=== PATIENT | male | born 1960 | race Caucasian/White ===

== ENCOUNTER 2017-11-10 16:02 | Inpatient (IN) | payer BC, OTHER ==
[2017-11-10] MEDS ORDERED: DILTIAZEM-D5W 125MG/125ML DRIP 125 ML IV (16:31)
[2017-11-10] MEDS: ASPIRIN 325 MG TAB PO (16:53)
[2017-11-10 16:54] LABS: ADD MAN DIFF? NO
[2017-11-10] MEDS: DILTIAZEM 25 MG INJ IV (16:54)
[2017-11-10 16:55] LABS: WHITE BLOOD COUNT 5.8 10^3/ul (4.8-10.8)
[2017-11-10 16:55] LABS: ABNORMAL IP MESSAGE 1; BASOPHILS % 0.5 % (0.0-2.0); EOSINOPHILS # 0.2 10^3/ul (0.0-0.5); EOSINOPHILS % 3.1 % (0.0-7.0); HEMATOCRIT 43.1 % (42.0-52.0); HEMOGLOBIN 14.9 g/dl (14.0-18.0); LYMPHOCYTES # 0.5 10^3/ul (0.8-2.9); LYMPHOCYTES % 8.6 % (15.0-51.0); MEAN CORPUSCULAR HEMOGLOBIN 29.3 pg (29.0-33.0); MEAN CORPUSCULAR HGB CONC 34.6 g/dl (32.0-37.0); MEAN CORPUSCULAR VOLUME 84.7 fl (82.0-101.0); MONOCYTE # 0.6 10^3/ul (0.3-0.9); MONOCYTES % 10.7 % (0.0-11.0); NEUTROPHIL # 4.4 10^3/ul (1.6-7.5); NEUTROPHILS % 76.4 % (39.0-77.0); PLATELET COUNT 198 10^3/UL (140-415); POSITIVE DIFF @See below; RED BLOOD COUNT 5.09 10^6/ul (4.70-6.10); RED CELL DISTRIBUTION WIDTH 13.9 % (11.5-14.5)
[2017-11-10] MEDS ORDERED: ACETAMINOPHEN 325 MG TAB PO (17:00)
[2017-11-10] MEDS ORDERED: ONDANSETRON 4 MG INJ IV (17:00)
[2017-11-10 17:02] LABS: ADD UMIC NO; UR ASCORBIC ACID NEGATIVE (NEGATIVE); UR BILIRUBIN (Dip) NEGATIVE (NEGATIVE); UR BLOOD (Dip) NEGATIVE (NEGATIVE); UR CLARITY CLEAR (CLEAR); UR COLOR YELLOW (YELLOW); UR GLUCOSE (Dip) NEGATIVE (NEGATIVE); UR KETONES (Dip) NEGATIVE (NEGATIVE); UR LEUKOCYTE ESTERASE (Dip) NEGATIVE Leu/ul (NEGATIVE); UR NITRITE (Dip) NEGATIVE (NEGATIVE); UR SPECIFIC GRAVITY (Dip) 1.012 (1.003-1.030); UR TOTAL PROTEIN (Dip) NEGATIVE (NEGATIVE); UR UROBILINOGEN (Dip) NEGATIVE (NEGATIVE)
[2017-11-10 17:12] LABS: INR 0.93; PROTIME 12.6 Sec (11.9-14.9)
[2017-11-10 17:13] LABS: PARTIAL THROMBOPLASTIN TIME 31.9 Sec (25.0-35.0)
[2017-11-10 17:24] LABS: ALANINE AMINOTRANSFERASE 38 IU/L (13-69); ALBUMIN 4.6 g/dl (3.3-4.9); ALBUMIN/GLOBULIN RATIO 1.84; ALKALINE PHOSPHATASE 56 IU/L (42-121); ANION GAP 18 (8-16); ASPARTATE AMINO TRANSFERASE 25 IU/L (15-46); BILIRUBIN,INDIRECT 0.2 mg/dl (0-1.1); BILIRUBIN,TOTAL 0.2 mg/dl (0.2-1.3); BLOOD UREA NITROGEN 20 mg/dl (7-20); CALCIUM 9.7 mg/dl (8.4-10.2); CARBON DIOXIDE 27 mmol/L (21-31); CHLORIDE 106 mmol/L (97-110); CREATINE KINASE 179 IU/L (23-200); CREATININE 1.17 mg/dl (0.61-1.24); GLUCOSE 100 mg/dl (70-220); POTASSIUM 5.1 mmol/L (3.5-5.1); SODIUM 146 mmol/L (135-144); TOTAL PROTEIN 7.1 g/dl (6.1-8.1)
[2017-11-10 17:36] LABS: B-TYPE NATRIURETIC PEPTIDE 415 PG/ML (0-125); CK INDEX 1.6; TROPONIN-I 0.014 ng/ml (0.00-0.12)
[2017-11-10 17:51] LABS: CK-MB 2.93 ng/ml (0.0-2.4)
[2017-11-10] MEDS: DILTIAZEM-D5W 125MG/125ML DRIP 125 ML IV (18:28)
[2017-11-10] MEDS: AMITRIPTYLINE 50 MG TAB PO (19:30)
[2017-11-10] MEDS ORDERED: ALPRAZOLAM 0.25 MG TAB PO (23:30)
[2017-11-10] MEDS ORDERED: HYDROCODONE/APAP (10/325) TAB PO (23:30)
[2017-11-10] MEDS ORDERED: MAGNESIUM HYDROXIDE 30ML CUP PO (23:30)
[2017-11-11] MEDS: AMITRIPTYLINE 25 MG TAB PO ×4 (00:14→16:45)
[2017-11-11] MEDS: TAMSULOSIN (SR) 0.4 MG CAP PO (00:14)
[2017-11-11 00:49] LABS: CREATINE KINASE 116 IU/L (23-200)
[2017-11-11 01:00] LABS: CK INDEX 1.6; TROPONIN-I 0.036 ng/ml (0.00-0.12)
[2017-11-11 01:09] LABS: CK-MB 1.91 ng/ml (0.0-2.4)
[2017-11-11] MEDS: ZOLPIDEM 5 MG TAB PO (02:30)
[2017-11-11] MEDS ORDERED: NITROGLYCERIN (SL) 0.4 MG TAB SL (04:00)
[2017-11-11] MEDS: LEVOTHYROXINE 100 MCG TAB PO (06:08)
[2017-11-11 08:30] LABS: ALANINE AMINOTRANSFERASE 36 IU/L (13-69); ALKALINE PHOSPHATASE 47 IU/L (42-121); ANION GAP 13 (8-16); ASPARTATE AMINO TRANSFERASE 18 IU/L (15-46); BILIRUBIN,INDIRECT 0.4 mg/dl (0-1.1); BILIRUBIN,TOTAL 0.4 mg/dl (0.2-1.3); BLOOD UREA NITROGEN 20 mg/dl (7-20); CALCIUM 9.3 mg/dl (8.4-10.2); CARBON DIOXIDE 27 mmol/L (21-31); CHLORIDE 104 mmol/L (97-110); CHOL/HDL RATIO 4.6 RATIO; CHOLESTEROL 143 mg/dl (100-200); CREATININE 1.16 mg/dl (0.61-1.24); GLUCOSE 105 mg/dl (70-220); HDL CHOLESTEROL 31 mg/dl (28-71); LDL CHOLESTEROL,CALCULATED 81 mg/dl; POTASSIUM 4.3 mmol/L (3.5-5.1); SODIUM 140 mmol/L (135-144); TOTAL PROTEIN 6.1 g/dl (6.1-8.1); TRIGLYCERIDES 156 mg/dl (0-149)
[2017-11-11 08:31] LABS: CREATINE KINASE 97 IU/L (23-200)
[2017-11-11 08:42] LABS: CK INDEX 1.5; TROPONIN-I 0.021 ng/ml (0.00-0.12)
[2017-11-11 08:44] LABS: T3 UPTAKE 34.8 % (23.5-40.5)
[2017-11-11 08:46] LABS: CK-MB 1.47 ng/ml (0.0-2.4)
[2017-11-11 08:59] LABS: THYROID STIMULATING HORMONE 0.956 MIU/L (0.465-4.680); TRIIODOTHYRONINE 1.08 ng/ml (0.97-1.69)
[2017-11-11] MEDS: PAROXETINE 20 MG TAB PO (09:34)
[2017-11-11] MEDS: ASPIRIN (EC) 81 MG TAB PO (09:34)
[2017-11-11] MEDS: MAGNESIUM SULFATE 2 GM/50 ML 50 ML IVPB (09:35)
[2017-11-11] MEDS: DILTIAZEM (CD) 240 MG CAP PO (11:19)
[2017-11-11 12:39] LABS: CK INDEX 1.3; CREATINE KINASE 87 IU/L (23-200)
[2017-11-11 12:41] LABS: CK-MB 1.17 ng/ml (0.0-2.4); TROPONIN-I < 0.012 ng/ml (0.00-0.12)
[2017-11-12] MEDS: TAMSULOSIN (SR) 0.4 MG CAP PO (00:41)
[2017-11-12] MEDS: AMITRIPTYLINE 25 MG TAB PO ×3 (00:41→12:13)
[2017-11-12] MEDS: ACETAMINOPHEN 325 MG TAB PO (03:01)
[2017-11-12] MEDS: ZOLPIDEM 5 MG TAB PO (03:07)
[2017-11-12] MEDS: LEVOTHYROXINE 150 MCG TAB PO (09:04)
[2017-11-12] MEDS: ASPIRIN (EC) 81 MG TAB PO (09:05)
[2017-11-12] MEDS: PAROXETINE 20 MG TAB PO (09:05)
[2017-11-12] MEDS: DILTIAZEM (CD) 240 MG CAP PO (09:08)
[2017-11-12 10:21] LABS: ANION GAP 13 (8-16); BLOOD UREA NITROGEN 25 mg/dl (7-20); CARBON DIOXIDE 27 mmol/L (21-31); CHLORIDE 104 mmol/L (97-110); CREATININE 1.13 mg/dl (0.61-1.24); GLUCOSE 111 mg/dl (70-220); POTASSIUM 3.9 mmol/L (3.5-5.1); SODIUM 140 mmol/L (135-144)
[2017-11-13] MEDS ORDERED: INFLUENZA VIRUS VACCINE 0.5 ML (DISPENSING) IM* (09:00)
== END 2017-11-12 15:24 | disposition home or self-care (01) | DRG 309 ==
LOC: E/R 16:02 → MS4 16:36
DX: I48.91 Unspecified atrial fibrillation (principal); C85.80 Other specified types of non-Hodgkin lymphoma, unspecified site; F31.9 Bipolar disorder, unspecified
CPT/HCPCS: 71045; 80048; 80053; 80061; 81003; 82550; 82553; 83880; 84443; 84479; 84480; 84484; 85025; 85610; 85730; 93005; 93306; 96374; 96375; 99291-25